=== PATIENT | female | born 1985 | race Caucasian/White ===

== ENCOUNTER 2018-12-23 17:52 | Observation (INO) | payer MEDICARE ==
[2018-12-23 17:59] VITALS: BMI 26.2
[2018-12-23] MEDS ORDERED: SODIUM CHLORIDE 0.9% 1000 ML INFUS.BAG IV ONE (18:28)
[2018-12-23] MEDS ORDERED: ONDANSETRON 4 MG/2 ML VIAL IVPUSH ONE (18:28)
[2018-12-23 18:48] LABS: BASO % 0.5 % (0-2.0); EOS % 1.2 % (0-4.5); HEMATOCRIT 41.9 % (32.4-45.2); HEMOGLOBIN 14.9 GM/dL (10.7-15.3); LYMPH % 23.3 % (8-40); MCH 32.6 pg (25.7-33.7); MCHC 35.5 g/dl (32.0-36.0); MEAN CELL VOLUME 91.8 fl (80-96); MEAN PLT VOLUME 10.2 fl (7.5-11.1); MONO % 5.4 % (3.8-10.2); NEUT % 69.6 % (42.8-82.8); PLATELET COUNT 199 K/MM3 (134-434); RBC 4.56 M/mm3 (3.60-5.2); WHITE BLOOD COUNT 10.5 K/mm3 (4.0-10.0)
--- NOTE | 2018-12-23 18:48 | PDOC ---
History of Present Illness - General Chief Complaint: Pain Stated Complaint: KIDNEY STONES Time Seen by Provider: 12/23/18 18:13 History Source: Patient Exam Limitations: Language Barrier (Credit Director [id number]) - History of Present Illness Initial Comments: 12/23/18 18:33 The patient is a 33F with a PMH of kidney stones who was sent in by her urologist, Dr. Holly. The patient states that she's had 1 month of R flank pain w/ a history of nephrolithiasis. She states that she spoke to her urologist who told her to come to the ER Monday at 6pm (today). She states she has mild pain and is intermittent nausea but denies fever, chills, CP, SOB, abdominal pain, hematuria, dysuria. Past History - Past Medical History Allergies/Adverse Reactions: Allergies Allergy/AdvReac Type Severity Reaction Status Date / Time No Known Allergies Allergy Verified 12/23/18 17:54 Home Medications: Ambulatory Orders Ibuprofen [Advil -] 400 mg PO QID PRN 12/23/18 Asthma: No Cancer: No Cardiac Disorders: No COPD: No Diabetes: No GI Disorders: Yes (renal stones) HTN: No Seizures: No Thyroid Disease: No - Reproductive History (#): 2 Para: 1 Spontaneous : 0 - Suicide/Smoking/Psychosocial Hx Smoking History: Never smoked Have you smoked in the past 12 months: No Hx Alcohol Use: No Drug/Substance Use Hx: No Substance Use Type: None Hx Substance Use Treatment: No Review of Systems - Review of Systems Able to Perform ROS?: Yes Is the patient limited Japanese proficient: No Constitutional: No: Chills, Fever Respiratory: No: Cough, Shortness of Breath Cardiac (ROS): No: Chest Pain, Palpitations ABD/GI: Yes: Nausea. No: Vomiting : Yes: Flank Pain (R). No: Burning, Dysuria, Other (hematuria) *Physical Exam - Vital Signs Last Vital Signs Temp Pulse Resp BP Pulse Ox 98.3 F 89 18 128/69 99 12/23/18 17:58 12/23/18 17:58 12/23/18 17:58 12/23/18 17:58 12/23/18 17:58 - Physical Exam Comments: 12/23/18 18:54 GENERAL: Well developed, well nourished. Awake and alert. No acute distress. HEENT: Normocephalic, atraumatic. Hearing grossly normal. Moist mucous membranes. PERRLA, EOMI. No conjunctival pallor. Sclera are non-icteric. NECK: Supple. Full ROM. No JVD. CARDIOVASCULAR: Regular rate and rhythm. No murmurs, rubs, or gallops. PULMONARY: No evidence of respiratory distress. Lungs clear to auscultation bilaterally. No wheezing, rales or rhonchi. ABDOMINAL: Soft. Non-tender. Non-distended. No rebound or guarding. GENITOURINARY: Mild R CVA tenderness. MUSCULOSKELETAL: Normal range of motion at all joints. No bony deformities or tenderness. EXTREMITIES: No cyanosis. No clubbing. No edema. No calf tenderness or swelling. SKIN: Warm and dry. Normal capillary refill. No rashes. No jaundice. NEUROLOGICAL: Alert, awake, appropriate. Cranial nerves 2-12 grossly intact. Normal speech. Gait is normal without ataxia. PSYCHIATRIC: Cooperative. Good eye contact. Appropriate mood and affect. Moderate Sedation - Procedure Monitoring Vital Signs: Procedure Monitoring Vital Signs Temperature 98.3 F 12/23/18 17:58 Pulse Rate 89 12/23/18 17:58 Respiratory Rate 18 12/23/18 17:58 Blood Pressure 128/69 12/23/18 17:58 O2 Sat by Pulse Oximetry (%) 99 12/23/18 17:58 ED Treatment Course - LABORATORY CBC & Chemistry Diagram: 12/23/18 18:30 12/23/18 18:30 Medical Decision Making - Medical Decision Making 12/23/18 18:55 The patient is a 33F with a PMH of nephrolithiasis who was sent by her urologist for a procedure. Pt is comfortable. Treating the nausea. Will make NPO at midnight. Pending call back from Dr. Holly - first call at [phone] and second call now. 12/23/18 19:25 Attending d/w Dr. Holly who is now aware of patient. Pt endorsed to Dr. Streeter for admission. *DC/Admit/Observation/Transfer Diagnosis at time of Disposition: Nephrolithiasis - Discharge Dispostion Condition at time of disposition: Guarded Decision to Admit order: Yes - Referrals - Patient Instructions - Post Discharge Activity
[2018-12-23 18:50] LABS: URINE APPEARANCE CLEAR; URINE BILIRUBIN NEGATIVE (<2.0 mg/dL); URINE COLOR STRAW; URINE GLUCOSE (UA) NEGATIVE (NEGATIVE); URINE KETONE NEGATIVE (NEGATIVE); URINE LEUK ESTERASE NEGATIVE (NEGATIVE); URINE NITRITE NEGATIVE (NEGATIVE); URINE PROTEIN NEGATIVE (NEGATIVE); URINE UROBILINOGEN NEGATIVE mg/dL (0.2-1.0)
--- NOTE | 2018-12-23 18:54 | PDOC ---
Attending Attestation - Resident Resident Name: Apolinar Meredith - ED Attending Attestation I have performed the following: I have examined & evaluated the patient, The case was reviewed & discussed with the resident, I agree w/resident's findings & plan, Exceptions are as noted - HPI HPI: 12/23/18 19:07 33 F with h/o kidney stones presenting to ED with R flank pain x 1 month. Found to have kidney stone and sent in by Dr. Oglesby for lithotripsy tomorrow. Pt denies F/C. Denies N/V. No dysuria. Currently endorses only R flank pain. - Physicial Exam PE: 12/23/18 19:15 GENERAL: Awake, alert, and fully oriented, in no acute distress. HEAD: No signs of trauma EYES: PERRLA, EOMI, sclera anicteric, conjunctiva clear ENT: Auricles normal inspection, hearing grossly normal, nares patent, oropharynx clear without exudates. Moist mucosa NECK: Nontender, no stepoffs, Normal ROM, supple, no lymphadenopathy, JVD, or masses LUNGS: Breath sounds equal, clear to auscultation bilaterally. No wheezes, and no crackles HEART: Regular rate and rhythm, normal S1 and S2, no murmurs, rubs or gallops ABDOMEN: Soft, nontender, normoactive bowel sounds. No guarding, no rebound. No masses BACK: + R CVAT EXTREMITIES: Normal range of motion, no edema. No clubbing or cyanosis. No cords, erythema, or tenderness NEUROLOGICAL: Cranial nerves II through XII intact. 5/5 strength and sensation in all extremities, Normal speech, normal gait, normal cerebellar function SKIN: Warm, Dry, normal turgor, no rashes or lesions noted. - Medical Decision Making 12/23/18 19:15 33 F with R kidney stone, sent in for lithotripsy. Will evaluate for infected stone, BRADLEY. - Labs, UA - Dr. Oglesby consulted - Admit
[2018-12-23] MEDS ORDERED: ONDANSETRON 4 MG/2 ML VIAL ONE (19:00)
[2018-12-23 19:03] LABS: EPI CELLS RARE /HPF (FEW); URINE MUCUS RARE
[2018-12-23 19:15] LABS: ALBUMIN 4.1 g/dl (3.4-5.0); ALK PHOS 66 U/L (45-117); ANION GAP 8 MMOL/L (8-16); BILIRUBIN,TOTAL 0.5 mg/dL (0.2-1); BLOOD UREA NITROGEN 14 mg/dL (7-18); CALCIUM 8.8 mg/dL (8.5-10.1); CHLORIDE 106 mmol/L (98-107); CO2 25 mmol/L (21-32); CREATININE 0.6 mg/dL (0.55-1.3); GLUCOSE,RANDOM 86 mg/dL (74-106); POTASSIUM 3.7 mmol/L (3.5-5.1); SGOT/AST 18 U/L (15-37); SGPT/ALT 20 U/L (13-61); SODIUM 138 mmol/L (136-145); TOT PROT 7.9 g/dl (6.4-8.2)
[2018-12-23 19:37] LABS: HCG,QUALITATIVE URINE Negative
[2018-12-23 19:44] LABS: INR 0.97 (0.83-1.09); PROTHROMBIN TIME (PATIENT) 11.4 SEC (9.7-13.0)
[2018-12-23] MEDS ORDERED: KETOROLAC TROMETHAMINE 10 MG TABLET PO PRN (20:02)
--- NOTE | 2018-12-23 20:06 | PN ---
Teaching Attending Note Name of Resident: Sarah Streeter ATTENDING PHYSICIAN STATEMENT I saw and evaluated the patient. I reviewed the resident's note and discussed the case with the resident. I agree with the resident's findings and plan as documented. SUBJECTIVE: Seen and examined; please see resident note for further historical information. Briefly, this is a 33 y/o patient with a history of nephrolithiasis that did not require procedure who presents at the behest of her urologist for admission for lithotripsy. She has had 1 month of R-sided renal colic and nothing makes it better or worse, has had similar sx in the past. Treated for UTI with nitrofurantoin 12/13 but no culture results available, etc. She had a negative UA now and doesn't have chani urinary sx. She is hemodynamically stable and afebrile. Will place on observation with uro consult for lithotripsy; thank you Dr. Holly for allowing us to take part in the ongoing care of your patient. 10 sys ROS done and negative aside from HPI PMH, PSH, Social hx, Family hx all reviewed Medication rec pending but takes no Rx meds at home OBJECTIVE: VS, labs, imaging reviewed NAD, AAO, Resting comfortably in bed RRR s1/2 no mgr Lungs CTAB, w/ sym exp R-sided CVA tenderness to fist percussion, ROM intact all limbs CN2-12 wnl, no fnd Normal mood, appropriate affect Labs show slight leukocytosis, UA with blood but negative LE/nitrite. Chemistry unremarkable. ASSESSMENT AND PLAN: Patient presents for lithotripsy; she is hemodynamically stable and afebrile 1) Renal stones -Defer further imaging and workup to urology; ultimate tx as per their service -NPO at MN then IVF with 75cc/hr LR -Pain control/nausea control -Flomax 0.4 qHS 2) Hx UTI -Negative UA now; white count is likely reactive. Monitor for fever. Doesn't loook clinically infected. FENA -LR@75 -PRN replete -NPO @ AR -As tolerated
--- NOTE | 2018-12-23 20:12 | HP ---
CHIEF COMPLAINT: R flank pain x 1 month PCP: [address] [facility] HISTORY OF PRESENT ILLNESS: 33 y/o F with PMH nephrolithasis (2014: 0.3cm R distal ureteral calculus, with mild hydroureter. d/c home on analgesics, uro f/u), past hx ectopic, miscarriage , who presents to the ED c/o R flank pain over the past month. As per pt, during this time, pt has had intermittent, R sided flank pain that has been 10/ 10, without radiation. States that it has been a/w nausea without emesis, as well as dysuria. For this reason, she went to her PCP on [address] and was referred to urologist, Dr. Holly. Pt was found to have R nephrolithiasis, thus she was told by Dr. Holly to come to the ED at 6PM in preparation for lithotripsy. Tx at the end of Nov for UTI with macrobid. Denies ROJAS, fever, chills, SOB, chest pain or pressure, hematuria, or changes in bowel function. ER course was notable for: (1) zofran 4mg IVP x 1 (2) NS 1L (3) Recent Travel: denies PAST MEDICAL HISTORY: as above PAST SURGICAL HISTORY: denies Social History: Smoking: denies Alcohol: denies Drugs: denies Family History: denies Allergies No Known Allergies Allergy (Verified 12/23/18 17:54) HOME MEDICATIONS: Home Medications Medication Instructions Recorded Ibuprofen [Advil -] 400 mg PO QID PRN 12/23/18 confirmed with patient; only takes PRN REVIEW OF SYSTEMS CONSTITUTIONAL: Absent: fever, chills, diaphoresis, generalized weakness, malaise, loss of appetite, weight change HEENT: Absent: rhinorrhea, nasal congestion, throat pain, throat swelling, difficulty swallowing, mouth swelling, ear pain, eye pain, visual changes CARDIOVASCULAR: Absent: chest pain, syncope, palpitations, irregular heart rate, lightheadedness , peripheral edema RESPIRATORY: Absent: cough, shortness of breath, dyspnea with exertion, orthopnea, wheezing, stridor, hemoptysis GASTROINTESTINAL: Absent: abdominal pain, abdominal distension, nausea, vomiting, diarrhea, constipation, melena, hematochezia GENITOURINARY: +dysuria, R flank pain Absent: dysuria, frequency, urgency, hesitancy, hematuria, flank pain, genital pain MUSCULOSKELETAL: Absent: myalgia, arthralgia, joint swelling, back pain, neck pain SKIN: Absent: rash, itching, pallor HEMATOLOGIC/IMMUNOLOGIC: Absent: easy bleeding, easy bruising, lymphadenopathy, frequent infections ENDOCRINE: Absent: unexplained weight gain, unexplained weight loss, heat intolerance, cold intolerance NEUROLOGIC: Absent: headache, focal weakness or paresthesias, dizziness, unsteady gait, seizure, mental status changes, bladder or bowel incontinence PSYCHIATRIC: Absent: anxiety, depression, suicidal or homicidal ideation, hallucinations. PHYSICAL EXAMINATION Vital Signs - 24 hr 12/23/18 17:58 Temperature 98.3 F Pulse Rate 89 Respiratory 18 Rate Blood Pressure 128/69 O2 Sat by Pulse 99 Oximetry (%) GENERAL: Pleasant. Sitting up in bed, NAD. HEAD: Normal with no signs of trauma. EYES: Pupils equal, round and reactive to light, extraocular movements intact, sclera anicteric, conjunctiva clear. EARS, NOSE, THROAT: Ears normal, nares patent, oropharynx clear without exudates. Moist mucous membranes. NECK: Normal range of motion, supple LUNGS: Breath sounds equal, clear to auscultation bilaterally. No wheezes, and no crackles. No accessory muscle use. HEART: Regular rate and rhythm, normal S1 and S2 without murmur, rub or gallop. ABDOMEN: Soft, +R flank pain, not distended, normoactive bowel sounds, no guarding MUSCULOSKELETAL: No CVA tenderness. LOWER EXTREMITIES: 2+ pt pulses, warm, well-perfused. No calf tenderness. No peripheral edema. NEUROLOGICAL: Cranial nerves II-XII intact. 5/5 motor strength UE, LE. sensation intact PSYCHIATRIC: Cooperative. Good eye contact. SKIN: Warm, dry Laboratory Results 12/23/18 12/23/18 12/23/18 18:30 18:30 18:37 WBC 10.5 H Hgb 14.9 Hct 41.9 D Plt Count 199 D Sodium 138 Potassium 3.7 Chloride 106 Carbon Dioxide 25 BUN 14 Creatinine 0.6 Random Glucose 86 Urine Glucose (UA) Negative Urine Ketones Negative Urine Blood 2+ H Urine Nitrite Negative Urine Bilirubin Negative Urine Urobilinogen Negative Ur Leukocyte Esterase Negative Urine WBC (Auto) <1 Urine RBC (Auto) 10 ASSESSMENT/PLAN: 33 y/o F with PMH nephrolithasis (2014: 0.3cm R distal ureteral calculus, with mild hydroureter), past hx ectopic, miscarriage, who presents to the ED c/o R flank pain over the past month. # R nephrolithiasis -for lithotripsy tomorrow with Dr. Holly -NPO after MN -PT/PTT, T+S -Toradol 10mg q6h PRN for pain -flomax 0.4mg PO qd -f/u EKG prior to cont'd zofran use -IVF: LR 75 cc/hr -Uro on board #F/E/N IV LR 75 cc/hr continue to follow lytes NPO after MN #PPX SCD's #Dispo med-surg obs Visit type - Emergency Visit Emergency Visit: Yes ED Registration Date: 12/23/18 Care time: The patient presented to the Emergency Department on the above date and was hospitalized for further evaluation of their emergent condition. - New Patient This patient is new to me today: Yes Date on this admission: 12/24/18 - Critical Care Critical Care patient: No
[2018-12-23] MEDS ORDERED: TAMSULOSIN HCL 0.4 MG CAP PO SCH ×2 (20:15→20:18)
[2018-12-23] MEDS ORDERED: LACTATED RINGERS SOLUTION 1,000 ML/1,000 ML INFUS.BAG IV SCH (20:30)
[2018-12-24] MEDS ORDERED: MORPHINE SULFATE 2 MG/ML VIAL ONE (07:22)
[2018-12-24] MEDS ORDERED: ALBUTEROL SO4 2.5/IPRATROPIUM 0.5 INH SOL 3 ML VIAL.NEB. NEB ONE (07:22)
[2018-12-24] MEDS ORDERED: TAMSULOSIN HCL 0.4 MG CAP PO SCH (08:30)
[2018-12-24 08:44] LABS: BASO % 0.3 % (0-2.0); EOS % 1.7 % (0-4.5); HEMATOCRIT 37.2 % (32.4-45.2); HEMOGLOBIN 13.1 GM/dL (10.7-15.3); LYMPH % 24.7 % (8-40); MCH 32.3 pg (25.7-33.7); MCHC 35.1 g/dl (32.0-36.0); MEAN CELL VOLUME 91.8 fl (80-96); MEAN PLT VOLUME 10.5 fl (7.5-11.1); MONO % 7.2 % (3.8-10.2); NEUT % 66.1 % (42.8-82.8); PLATELET COUNT 183 K/MM3 (134-434); RBC 4.05 M/mm3 (3.60-5.2); RDW 13.3 % (11.6-15.6)
[2018-12-24 09:03] LABS: ANION GAP 6 MMOL/L (8-16); BLOOD UREA NITROGEN 11 mg/dL (7-18); CALCIUM 8.5 mg/dL (8.5-10.1); CHLORIDE 108 mmol/L (98-107); CO2 26 mmol/L (21-32); CREATININE 0.7 mg/dL (0.55-1.3); GLUCOSE,RANDOM 73 mg/dL (74-106); MAGNESIUM 2.4 mg/dL (1.8-2.4); PHOSPHOROUS 2.4 mg/dL (2.5-4.9); POTASSIUM 3.9 mmol/L (3.5-5.1); SODIUM 140 mmol/L (136-145)
--- NOTE | 2018-12-24 09:55 | EKG ---
Test Reason : Blood Pressure : / mmHG Vent. Rate : 071 BPM Atrial Rate : 071 BPM P-R Int : 124 ms QRS Dur : 076 ms QT Int : 404 ms P-R-T Axes : 001 017 040 degrees QTc Int : 439 ms NORMAL SINUS RHYTHM NORMAL ECG NO PREVIOUS ECGS AVAILABLE Confirmed by MARKUS CASTILLO MD ([id number]) on 12/24/2018 9:55:26 AM Referred By: Confirmed By:MARKUS CASTILLO MD
[2018-12-24] MEDS ORDERED: POTASSIUM PHOSPHATE 30 MM in SODIUM CHLORIDE 250 ML IVPB ONE (10:00)
[2018-12-24] MEDS ORDERED: PIPERACILLIN/TAZOB 3.375 GM 3.375 GM in DEXTROSE 5%-WATER - 50 ML IVPB ONE (10:45)
[2018-12-24] MEDS ORDERED: MIDAZOLAM HCL 2 MG/2 ML SINGLE DOSE VIAL ONE (10:49)
--- NOTE | 2018-12-24 11:24 | OP ---
Operative Note - Note: Operative Date: 12/24/18 Pre-Operative Diagnosis: R renal stone Operation: Righr ESWL Findings: 5 mm mid pole Right renal stone Post-Operative Diagnosis: Same as Pre-op Anesthesia: Fractional Estimated Blood Loss (mls): 0 Operative Report Dictated: Yes
[2018-12-24 11:26] VITALS: TEMP 98.5
[2018-12-24 12:07] VITALS: BP 114/69; PULSE 79
--- NOTE | 2018-12-24 13:39 | DS ---
Physical Exam: SUBJECTIVE: Patient reports her pain has improved. She reports she has slight pain upon urination. She has no other complaints. OBJECTIVE: Vital Signs Temperature 98.5 F 12/24/18 11:24 Pulse Rate 79 12/24/18 12:00 Respiratory Rate 16 12/24/18 12:00 Blood Pressure 114/69 12/24/18 12:00 O2 Sat by Pulse Oximetry (%) 99 12/24/18 12:00 PHYSICAL EXAM GENERAL: The patient is awake, alert, and fully oriented, in no acute distress. LUNGS: Breath sounds equal, clear to auscultation bilaterally, no wheezes, HEART: Regular rate and rhythm, S1, S2 ABDOMEN: Soft, nontender, nondistended, normoactive bowel sounds, no guarding, no rebound, no hepatosplenomegaly, no masses. No CVA tenderness EXTREMITIES: 2+ pulses, warm, well-perfused, no edema. SKIN: Warm, dry, normal turgor, no rashes or lesions noted. LABS CBC,CMP WBC 8.0 K/mm3 (4.0-10.0) 12/24/18 07:08 RBC 4.05 M/mm3 (3.60-5.2) 12/24/18 07:08 Hgb 13.1 GM/dL (10.7-15.3) 12/24/18 07:08 Hct 37.2 % (32.4-45.2) 12/24/18 07:08 MCV 91.8 fl (80-96) 12/24/18 07:08 MCH 32.3 pg (25.7-33.7) 12/24/18 07:08 MCHC 35.1 g/dl (32.0-36.0) 12/24/18 07:08 RDW 13.3 % (11.6-15.6) 12/24/18 07:08 Plt Count 183 K/MM3 (134-434) 12/24/18 07:08 MPV 10.5 fl (7.5-11.1) 12/24/18 07:08 Absolute Neuts (auto) 5.3 K/mm3 (1.5-8.0) 12/24/18 07:08 Neutrophils % 66.1 % (42.8-82.8) 12/24/18 07:08 Lymphocytes % 24.7 % (8-40) 12/24/18 07:08 Monocytes % 7.2 % (3.8-10.2) 12/24/18 07:08 Eosinophils % 1.7 % (0-4.5) 12/24/18 07:08 Basophils % 0.3 % (0-2.0) 12/24/18 07:08 Nucleated RBC % 0 % (0-0) 12/24/18 07:08 Sodium 140 mmol/L (136-145) 12/24/18 07:08 Potassium 3.9 mmol/L (3.5-5.1) 12/24/18 07:08 Chloride 108 mmol/L (98-107) H 12/24/18 07:08 Carbon Dioxide 26 mmol/L (21-32) 12/24/18 07:08 Anion Gap 6 MMOL/L (8-16) L 12/24/18 07:08 BUN 11 mg/dL (7-18) 12/24/18 07:08 Creatinine 0.7 mg/dL (0.55-1.3) 12/24/18 07:08 Creat Clearance w eGFR > 60 (>60) 12/24/18 07:08 Random Glucose 73 mg/dL (74-106) L 12/24/18 07:08 Calcium 8.5 mg/dL (8.5-10.1) 12/24/18 07:08 Phosphorus 2.4 mg/dL (2.5-4.9) L 12/24/18 07:08 Magnesium 2.4 mg/dL (1.8-2.4) 12/24/18 07:08 Total Bilirubin 0.5 mg/dL (0.2-1) 12/23/18 18:30 AST 18 U/L (15-37) 12/23/18 18:30 ALT 20 U/L (13-61) 12/23/18 18:30 Alkaline Phosphatase 66 U/L (45-117) 12/23/18 18:30 Total Protein 7.9 g/dl (6.4-8.2) 12/23/18 18:30 Albumin 4.1 g/dl (3.4-5.0) 12/23/18 18:30 HOSPITAL COURSE: Date of Admission:12/23/18 Patient admitted for nephrolithiasis found in the office of Dr. Holly. Patient presented to the ED, pain treated. Patient had a lithotripsy done. Patient vitals stable and discharged with instructions to follow up with Dr. Cecil Andrea. Date of Discharge: 12/24/18 Minutes to complete discharge: 37 Discharge Summary Reason For Visit: CALCULUS OF KIDNEY Condition: Good - Instructions Diet, Activity, Other Instructions: Hydration No ASA Encourage ambulation Asdvance diet Call office for F/U appointment [phone] Please follow up with your primary care physician within one week. Please return to the ED if you have any blood in your urine, neck pain, fever, chills, nausea, chest pain, or shortness of breath. Disposition: HOME - Home Medications Comprehensive Discharge Medication List: Ambulatory Orders Ibuprofen [Advil -] 400 mg PO QID PRN 12/23/18 This patient is new to me today: Yes Date on this admission: 12/24/18 Emergency Visit: Yes ED Registration Date: 12/23/18 Care time: The patient presented to the Emergency Department on the above date and was hospitalized for further evaluation of their emergent condition. Critical Care patient: No - Discharge Referral Referred to [facility] Med P.C.: No
--- NOTE | 2018-12-24 14:40 | PN ---
Teaching Attending Note Name of Resident: Cindy Amador ATTENDING PHYSICIAN STATEMENT I reviewed the resident's note and discussed the case with the resident. I agree with the resident's findings and plan as documented. SUBJECTIVE: pt was discharged and left by Dr Wade Andrea prior to my assessment
--- NOTE | 2018-12-25 09:11 | OP ---
DATE OF OPERATION: 12/24/2018 PREOPERATIVE DIAGNOSIS: Right renal stone. POSTOPERATIVE DIAGNOSIS: Right renal stone. PROCEDURE: Right extracorporeal shockwave lithotripsy. ATTENDING: John Andrea MD ANESTHESIA: General. OPERATION: Patient was brought in the operating room, placed in the supine position on the operating room table. Ultrasonography and fluoroscopy were performed. A 5-mm right mid pole stone was identified. Anesthesia and preoperative antibiotics were then administered. Shockwave lithotripsy was then performed. Patient tolerated the procedure very well. No complications were noted. The disposition of the patient was to recovery room. Aditi [id number]
== END 2018-12-24 12:00 | disposition home or self-care (01) ==
LOC: JER 17:52 → JERBED 19:26
PROVIDERS: ADMIT Internal Medicine; ATTEND Internal Medicine
PROC: 0TF3XZZ Fragmentation in Right Kidney Pelvis, External Approach (ICD-10-PCS; principal; 2018-12-23)
PROC: 3E03329 Introduction of Other Anti-infective into Peripheral Vein, Percutaneous Approach (ICD-10-PCS; 2018-12-23)
PROC: 3E0337Z Introduction of Electrolytic and Water Balance Substance into Peripheral Vein, Percutaneous Approach (ICD-10-PCS; 2018-12-23)
PROC: 3E033GC Introduction of Other Therapeutic Substance into Peripheral Vein, Percutaneous Approach (ICD-10-PCS; 2018-12-23)
DX: N20.0 Calculus of kidney (principal); Z87.442 Personal history of urinary calculi
CPT/HCPCS: 36415; 80048; 80053; 81003; 81015; 83735; 84100; 84703; 85025; 85610; 86850; 86900; 86901; 93005; 93010; 96374; 96375; 99285-25; G0378; J7030

== ENCOUNTER 2021-07-15 19:32 | Inpatient (IN) | payer OTHER ==
[2021-07-15] MEDS ORDERED: ONDANSETRON 4 MG/2 ML VIAL IVPUSH ONE (20:41)
[2021-07-15] MEDS ORDERED: SODIUM CHLORIDE 0.9% 500 ML INFUS.BAG IV ONE (20:41)
[2021-07-15] MEDS ORDERED: KETOROLAC TROMETHAMINE 30 MG/1 ML VIAL IVPUSH ONE (20:41)
[2021-07-15] MEDS ORDERED: KETOROLAC TROMETHAMINE 30 MG/1 ML VIAL ONE (20:45)
[2021-07-15] MEDS ORDERED: ONDANSETRON 4 MG/2 ML VIAL ONE (20:45)
[2021-07-15 21:21] LABS: EPI CELLS 7 /uL (0-25.1); HYALINE CASTS 0 /uL (0-3.1); URINE APPEARANCE CLEAR; URINE BACTERIA 28 /uL (0-1359); URINE BILIRUBIN NEGATIVE (NEGATIVE); URINE COLOR YELLOW; URINE GLUCOSE (UA) NEGATIVE (NEGATIVE); URINE KETONE NEGATIVE (NEGATIVE); URINE LEUK ESTERASE NEGATIVE (NEGATIVE); URINE NITRITE NEGATIVE (NEGATIVE); URINE PROTEIN NEGATIVE (NEGATIVE); URINE RBC 60 /uL (0-23.9); URINE UROBILINOGEN 0.2 mg/dL (0.2-1.0); URINE WBC 1 /uL (0-25.8)
[2021-07-15 21:25] LABS: BASO % 0.2 % (0-2.0); EOS % 3.3 % (0-4.5); HEMOGLOBIN 14.6 GM/dL (10.7-15.3); LYMPH % 19.2 % (8-40); MCH 31.8 pg (25.7-33.7); MCHC 35.7 g/dl (32.0-36.0); MEAN PLT VOLUME 10.1 fl (7.5-11.1); MONO % 7.8 % (3.8-10.2); NEUT % 69.5 % (42.8-82.8); PLATELET COUNT 217 10^3/uL (134-434); RDW 12.8 % (11.6-15.6); WHITE BLOOD COUNT 11.2 K/mm3 (4.0-10.0)
[2021-07-15 21:31] LABS: CHLORIDE 103 mmol/L (98-107); SODIUM 137 mmol/L (136-145)
[2021-07-15 21:33] LABS: CALCIUM 8.6 mg/dL (8.5-10.1); GLUCOSE,RANDOM 103 mg/dL (74-106)
[2021-07-15 21:36] LABS: ALBUMIN 3.8 g/dl (3.4-5.0); BLOOD UREA NITROGEN 16.4 mg/dL (7-18); LIPASE 112 U/L (73-393)
[2021-07-15 21:37] LABS: CREATININE 0.6 mg/dL (0.55-1.3); SGOT/AST 24 U/L (15-37); SGPT/ALT 28 U/L (13-61)
[2021-07-15 21:38] LABS: BILIRUBIN,TOTAL 0.3 mg/dL (0.2-1); TOT PROT 8.1 g/dl (6.4-8.2)
[2021-07-15 21:39] LABS: ALK PHOS 113 U/L (45-117); ANION GAP 5 MMOL/L (8-16); CO2 29 mmol/L (21-32)
[2021-07-15] MEDS ORDERED: PIPERACILLIN/TAZOB 3.375 GM 3.375 GM in DEXTROSE 5%-WATER - 50 ML IVPB ONE (21:56)
[2021-07-15] MEDS ORDERED: PIPERACILLIN/TAZOB 3.375 GM 3.375 GM/50 ML BAG IVPB ONE (22:08)
[2021-07-16] MEDS ORDERED: ACETAMINOPHEN 325 MG TABLET (FP) PO PRN ×2 (01:05→14:33)
[2021-07-16] MEDS ORDERED: MORPHINE SULFATE 2 MG/ML VIAL IVPUSH PRN (01:05)
[2021-07-16] MEDS ORDERED: SODIUM CHLORIDE 1,000 ML IV SCH (01:15)
[2021-07-16] MEDS: PIPERACILLIN/TAZOB 3.375 GM 3.375 GM in DEXTROSE 5%-WATER - 50 ML IVPB SCH ×2 (05:10→11:20)
[2021-07-16] MEDS ORDERED: MORPHINE SULFATE 2 MG/ML VIAL ONE (05:36)
[2021-07-16] MEDS ORDERED: PIPERACILLIN/TAZOB 3.375 GM 3.375 GM/50 ML BAG IVPB ONE (06:14)
[2021-07-16 07:56] LABS: EPI CELLS 9 /uL (0-25.1); HYALINE CASTS 2 /uL (0-3.1); PH,URINE 6.5 (5.0-8.0); URINE APPEARANCE CLEAR; URINE BACTERIA 47 /uL (0-1359); URINE BILIRUBIN NEGATIVE (NEGATIVE); URINE COLOR DK YELLOW; URINE GLUCOSE (UA) NEGATIVE (NEGATIVE); URINE KETONE 1+ (NEGATIVE); URINE LEUK ESTERASE NEGATIVE (NEGATIVE); URINE NITRITE NEGATIVE (NEGATIVE); URINE PROTEIN 1+ (NEGATIVE); URINE RBC 176 /uL (0-23.9); URINE WBC 5 /uL (0-25.8)
[2021-07-16 08:22] LABS: HEMATOCRIT 37.1 % (32.4-45.2); HEMOGLOBIN 13.1 GM/dL (10.7-15.3); MCH 31.8 pg (25.7-33.7); MCHC 35.4 g/dl (32.0-36.0); MEAN CELL VOLUME 89.8 fl (80-96); MEAN PLT VOLUME 10.4 fl (7.5-11.1); PLATELET COUNT 194 10^3/uL (134-434); RBC 4.13 M/mm3 (3.60-5.2); RDW 12.7 % (11.6-15.6); WHITE BLOOD COUNT 13.2 K/mm3 (4.0-10.0)
[2021-07-16 08:46] LABS: ALBUMIN 3.2 g/dl (3.4-5.0); CALCIUM 7.9 mg/dL (8.5-10.1)
[2021-07-16 08:47] LABS: BLOOD UREA NITROGEN 12.4 mg/dL (7-18); MAGNESIUM 2.1 mg/dL (1.8-2.4)
[2021-07-16 08:49] LABS: CREATININE 0.7 mg/dL (0.55-1.3)
[2021-07-16 08:50] LABS: PHOSPHOROUS 2.5 mg/dL (2.5-4.9)
[2021-07-16 08:51] LABS: BILIRUBIN,TOTAL 0.5 mg/dL (0.2-1); TOT PROT 6.7 g/dl (6.4-8.2)
[2021-07-16] MEDS ORDERED: POTASSIUM CHLORIDE 10 MEQ in DEXTROSE 5%-NORMAL SALINE 1,000 ML IVPB SCH (09:00)
[2021-07-16] MEDS ORDERED: MORPHINE SULFATE 2 MG/ML VIAL IM ONE (09:15)
[2021-07-16 10:46] VITALS: BMI 26.0
[2021-07-16] MEDS ORDERED: PIPERACILLIN/TAZOBACTAM 3.375 GM VIAL IVPB ONE (10:53)
[2021-07-16] MEDS ORDERED: DEXTROSE 5%-WATER - 50 ML IVPB ONE (10:53)
[2021-07-16] MEDS ORDERED: BUPIVACAINE HCL/PF 0.5% (5MG/ML) 10 ML VIAL ONE ×2 (11:13→11:18)
[2021-07-16] MEDS ORDERED: ONDANSETRON 4 MG/2 ML VIAL ONE (12:17)
[2021-07-16] MEDS ORDERED: GLYCOPYRROLATE 0.2 MG/1 ML VIAL ONE ×3 (12:17→13:51)
[2021-07-16] MEDS ORDERED: KETOROLAC TROMETHAMINE 30 MG/1 ML VIAL ONE (12:17)
[2021-07-16] MEDS ORDERED: DEXAMETHASONE SOD PHOSPHATE 4 MG/1 ML VIAL ONE (12:17)
[2021-07-16] MEDS ORDERED: LIDOCAINE HCL/PF 2% SDV 5ML VIAL ONE (12:17)
[2021-07-16] MEDS ORDERED: fentaNYL CITRATE 250 MCG/5 ML VIAL ONE (12:19)
[2021-07-16] MEDS ORDERED: PROPOFOL 20 ML ONE ×2 (12:19)
[2021-07-16] MEDS ORDERED: ROCURONIUM BROMIDE 50 MG/5 ML SYRINGE ONE (12:20)
[2021-07-16] MEDS ORDERED: MIDAZOLAM HCL 2 MG/2 ML SINGLE DOSE VIAL ONE (12:20)
[2021-07-16] MEDS ORDERED: ONDANSETRON 4 MG/2 ML VIAL IVPUSH PRN ×2 (12:26→14:33)
[2021-07-16 12:30] LABS: INR 1.09 (0.83-1.09); PROTHROMBIN TIME (PATIENT) 13.2 SEC (9.7-13.0)
[2021-07-16] MEDS ORDERED: LACTATED RINGERS SOLUTION 1,000 ML IV SCH ×2 (12:30→14:33)
[2021-07-16] MEDS ORDERED: NEOSTIGMINE METHYLSULFATE 0.5 MG/1 ML - 10 ML MDV ONE (13:51)
[2021-07-16] MEDS ORDERED: BUPIVACAINE HCL/PF 0.5% (5MG/ML) 10 ML VIAL NR ONE ×2 (13:55)
[2021-07-16] MEDS ORDERED: oxyCODONE HCL 5 MG TABLET PO PRN (14:33)
[2021-07-16] MEDS ORDERED: KETOROLAC TROMETHAMINE 30 MG/1 ML VIAL IVPUSH PRN (21:00)
[2021-07-16] MEDS: HEPARIN NA (PORCINE) 5,000 UNITS/ML 1ML VIAL SQ SCH (21:10)
[2021-07-17] MEDS ORDERED: PIPERACILLIN/TAZOB 3.375 GM 3.375 GM in DEXTROSE 5%-WATER - 50 ML IVPB SCH (02:00)
[2021-07-17] MEDS: HEPARIN NA (PORCINE) 5,000 UNITS/ML 1ML VIAL SQ SCH ×2 (05:24→14:51)
[2021-07-17 06:44] VITALS: TEMP 98.2
[2021-07-17] MEDS ORDERED: ONDANSETRON 4 MG/2 ML VIAL IVPUSH PRN (07:35)
[2021-07-17] MEDS ORDERED: oxyCODONE HCL 5 MG TABLET PO PRN (07:35)
[2021-07-17] MEDS ORDERED: KETOROLAC TROMETHAMINE 30 MG/1 ML VIAL IVPUSH PRN (07:35)
[2021-07-17] MEDS ORDERED: ACETAMINOPHEN 325 MG TABLET (FP) PO PRN (07:35)
[2021-07-17] MEDS ORDERED: LACTATED RINGERS SOLUTION 1,000 ML IV SCH (07:35)
[2021-07-17 08:06] LABS: HEMATOCRIT 35.2 % (32.4-45.2); HEMOGLOBIN 12.4 GM/dL (10.7-15.3); MCH 31.7 pg (25.7-33.7); MCHC 35.3 g/dl (32.0-36.0); MEAN CELL VOLUME 89.7 fl (80-96); MEAN PLT VOLUME 9.9 fl (7.5-11.1); PLATELET COUNT 180 10^3/uL (134-434); RBC 3.93 M/mm3 (3.60-5.2); RDW 12.8 % (11.6-15.6); WHITE BLOOD COUNT 10.4 K/mm3 (4.0-10.0)
[2021-07-17 08:26] LABS: ALBUMIN 2.8 g/dl (3.4-5.0); BLOOD UREA NITROGEN 12.8 mg/dL (7-18); CALCIUM 7.8 mg/dL (8.5-10.1)
[2021-07-17 08:30] LABS: CREATININE 0.6 mg/dL (0.55-1.3)
[2021-07-17 08:31] LABS: BILIRUBIN,TOTAL 0.4 mg/dL (0.2-1); TOT PROT 6.4 g/dl (6.4-8.2)
[2021-07-17 11:18] VITALS: BP 131/73; PULSE 68
[2021-07-17 12:59] LABS: EPI CELLS 5 /uL (0-25.1); HYALINE CASTS 0 /uL (0-3.1); URINE APPEARANCE CLEAR; URINE BACTERIA 9 /uL (0-1359); URINE BILIRUBIN NEGATIVE (NEGATIVE); URINE COLOR YELLOW; URINE GLUCOSE (UA) NEGATIVE (NEGATIVE); URINE KETONE TRACE (NEGATIVE); URINE LEUK ESTERASE NEGATIVE (NEGATIVE); URINE NITRITE NEGATIVE (NEGATIVE); URINE PROTEIN NEGATIVE (NEGATIVE); URINE RBC 55 /uL (0-23.9); URINE UROBILINOGEN 0.2 mg/dL (0.2-1.0); URINE WBC 4 /uL (0-25.8)
== END 2021-07-17 15:53 | disposition home or self-care (01) | DRG 263 ==
LOC: JER 19:32 → JERBED 21:54 → J6S 07-16 09:03
PROVIDERS: ADMIT Internal Medicine; ATTEND Internal Medicine
PROC: 0FT44ZZ Resection of Gallbladder, Percutaneous Endoscopic Approach (ICD-10-PCS; principal; 2021-07-16 13:30)
DX: K80.00 Calculus of gallbladder with acute cholecystitis without obstruction (principal); N20.0 Calculus of kidney; D72.829 Elevated white blood cell count, unspecified; R01.1 Cardiac murmur, unspecified; R10.11 Right upper quadrant pain; R11.2 Nausea with vomiting, unspecified; R31.29 Other microscopic hematuria
CPT/HCPCS: 36415; 76705-TC; 80053; 81003; 83690; 83735; 84100; 84702; 85025; 85027; 85610; 86850; 86900; 86901; 93005; 93010; 93306-TC; 94760; 99285-25; C9803; J1644; U0003; U0005